=== PATIENT | male | born 1960 | race Hispanic/Latino ===

== ENCOUNTER 2018-04-18 09:00 | Emergency (ER) | payer BC ==
[2018-04-18 09:13] VITALS: BP 166/87; PULSE 62; RESP 17; TEMP 98.2; O2SAT 96
[2018-04-18] MEDS ORDERED: Fluorescein 1 mg Ophthalmic Strip OS ONE (09:20)
[2018-04-18] MEDS ORDERED: Tetracaine 0.5% Ophth 2 ML BOTTLE OS STA (09:20)
--- NOTE | 2018-04-18 09:56 | ED PDOC ---
Arrival/HPI - General Chief Complaint: Eye Problem Time Seen by Provider: 04/18/18 09:20 Historian: Patient - History of Present Illness Narrative History of Present Illness (Text): 04/18/18 57 yo male w/o significant PMHx comes in for evaluation of Left eye FB sensation developed for past hours " was helping my friend at his house, grinding metal and piece of metal went into my left eye". Pt admits, flushed injured eye with water immediately after the injury. Otherwise, pt denies head injury, headache, dizziness, blurry vision, pain or discomfort on left eye movement, denies eye discharge, light sensitivity , denies any other active complaints. Ambulate to ED for evaluation, not in nay apparent distress. Past Medical History - Provider Review Nursing Documentation Reviewed: Yes - Travel History Have you recently traveled outside [place] w/in the past 3 mons?: No - Infectious Disease Hx of Infectious Diseases: None - Tetanus Immunization Tetanus Immunization: Up to Date (3 yrs ago) - Psychiatric Hx Substance Use: No Family/Social History - Physician Review Nursing Documentation Reviewed: Yes Family/Social History: No Known Family HX Smoking Status: Never Smoked Hx Alcohol Use: Yes Frequency of alcohol use: Socially Hx Substance Use: No Allergies/Home Meds Allergies/Adverse Reactions: Allergies No Known Allergies Allergy (Verified 04/18/18 09:13) Review of Systems - Review of Systems Constitutional: Normal Eyes: Other (Left eye FB sensation). absent: Vision Changes, Photophobia ENT: Normal Respiratory: Normal Cardiovascular: Normal Gastrointestinal: Normal Genitourinary Male: Normal Musculoskeletal: Normal Skin: Normal Neurological: Normal Endocrine: Normal Hemo/Lymphatic: Normal Psychiatric: Normal Physical Exam Vital Signs Reviewed: Yes Vital Signs Temp Pulse Resp BP Pulse Ox 04/18/18 09:10 98.2 F 62 17 166/87 H 96 Temperature: Afebrile Blood Pressure: Hypertensive Pulse: Regular Respiratory Rate: Normal Appearance: Positive for: Well-Appearing, Non-Toxic, Comfortable Pain Distress: None Mental Status: Positive for: Alert and Oriented X 3 - Systems Exam Head: Present: Atraumatic, Normocephalic Pupils: Present: PERRL Extroacular Muscles: Present: EOMI (no pain or limitation on extraocular movement B/L) Conjunctiva: Present: Normal, Other (fluoresceine exam on Left eye with mild uptake at 9 o'clock. No periorbital edema or erythema. No eye discharge, No corneal FB.) Ears: Present: Normal Mouth: Present: Moist Mucous Membranes Pharnyx: No: ERYTHEMA Nose (External): Present: Atraumatic Neck: Present: Trachea Midline Neurological: Present: Speech Normal Skin: Present: Warm, Dry, Normal Color. No: Rashes Psychiatric: Present: Alert, Oriented x 3 Medical Decision Making ED Course and Treatment: 04/18/18 09:57 On re-eval, pt is afebrile, hemodynamicaly stable. Non-toxic. VA performed by id: R 20/30, L 20/35, B/L 20/30 w/o correction Left eye: mild fluorescien uptake at 9 o'clock. No evidence of corneal FB, no periorbital edema or erythema, no pain or limitation on extraocular movement. ENT: no acute findings Neck: Supple, (-) midline tenderness Neurologicaly intact. Pt advised on course of ds, eye protection during the work. Pt reports tetanus is UTD- 3 yrs ago Pt ref. to f/u with Opht in 1-2 days for re-eval. return if any new changes. - Medication Orders Current Medication Orders: Discontinued Medications Fluorescein Sodium (Kwtxk-N-Sguft A.T.) 1 mg OS ONCE ONE Stop: 04/18/18 09:21 Last Admin: 04/18/18 09:41 Dose: 1 mg Tetracaine HCl (Tetracaine 0.5% Ophth Soln) 2 drop OS STAT STA Stop: 04/18/18 09:21 Last Admin: 04/18/18 09:42 Dose: 2 drop Comments: unable to scan, scanner does not recognize. adm by OBED Guzman. Disposition/Present on Arrival - Present on Arrival Any Indicators Present on Arrival: No History of DVT/PE: No History of Uncontrolled Diabetes: No Urinary Catheter: No History of Decub. Ulcer: No History Surgical Site Infection Following: None - Disposition Have Diagnosis and Disposition been Completed?: Yes Diagnosis: Corneal abrasion Disposition: HOME/ ROUTINE Disposition Time: 09:53 Patient Plan: Discharge Condition: STABLE Discharge Instructions (ExitCare): Corneal Abrasion Additional Instructions: Eye patch for 1 week, avoid left eye sun exposure Take medication as prescribed follow up with Ophthalmology in 2-3 days for re-evaluation. return to ED if any new changes. Prescriptions: Neomycin/Polymyxin/Dexamethaso [Dexamethasone/Neomycin/Polymyxin 5 Ml] 2 drop LEFTEYE Q4 #1 bottle Referrals: Angel Luis Knott MD [Staff Provider] - Follow up with primary Forms: [employer] ([place]azi)
== END 2018-04-18 10:15 | disposition home or self-care (01) ==
LOC: ED 09:00
DX: S05.02XA Injury of conjunctiva and corneal abrasion without foreign body, left eye, initial encounter (principal); X58.XXXA Exposure to other specified factors, initial encounter; Y92.89 Other specified places as the place of occurrence of the external cause